=== PATIENT | male | born 1955 | race Caucasian/White ===

== ENCOUNTER 2023-08-28 11:54 | Inpatient (IN) | payer OTHER ==
[2023-08-28 15:14] LABS: HEMATOCRIT 41.6 % (35.4-49); HEMOGLOBIN 14.4 G/dL (11.7-16.9); MCH 30.8 pg (25.7-33.7); MCHC 34.7 g/dl (32.0-35.9); MEAN CELL VOLUME 88.9 fl (80-96); MEAN PLT VOLUME 8.8 fl (7.5-11.1); PLATELET COUNT 124.3 10^3/uL (134-434); RBC 4.68 10^6/uL (4.00-5.60); RDW 13.9 % (11.9-15.9); WHITE BLOOD COUNT 5.2 10^3/uL (4.0-10.8)
[2023-08-28] MEDS ORDERED: cefTRIAXone SODIUM 1 GM VIAL ONE (15:16)
[2023-08-28] MEDS ORDERED: AZITHROMYCIN 500 MG VIAL IVPB ONE (15:16)
[2023-08-28] MEDS ORDERED: ACETAMINOPHEN INJECTION 100 ML IVPB ONE (15:17)
[2023-08-28] MEDS: ACETAMINOPHEN 1000 MG/100 ML BAG IVPB ONE (15:30)
[2023-08-28 15:37] LABS: BILIRUBIN,TOTAL 0.5 mg/dl (0.2-1); CALCIUM 8.6 mg/dl (8.5-10.1); POTASSIUM 4.1 mmol/L (3.5-5.1); TOT PROT 6.9 g/dl (6.4-8.2)
[2023-08-28] MEDS: AZITHROMYCIN IVPB 500 MG in DEXTROSE 5%-WATER - 250 ML IVPB ONE (15:42)
[2023-08-28] MEDS: SODIUM CHLORIDE 2,014 ML IV ONE (15:42)
[2023-08-28 16:27] LABS: INR 1.09 (0.83-1.09); PROTHROMBIN TIME (PATIENT) 12.6 SEC (9.7-13.0)
[2023-08-28 17:06] LABS: PLATELET ESTIMATE SLT DECREASE
[2023-08-28 19:43] VITALS: BMI 30.5
[2023-08-28] MEDS: ACETAMINOPHEN 325 MG TABLET (FP) PO PRN (20:09)
[2023-08-28] MEDS: ALBUTEROL SO4 HFA INHALER IH PRN (20:10)
[2023-08-28] MEDS: DEXTROMETHORPHAN/PROMETHAZINE 15 MG/6.25 MG/5 ML SYRUP PO PRN (22:00)
[2023-08-29 08:27] LABS: HEMATOCRIT 46.7 % (35.4-49); HEMOGLOBIN 15.3 G/dL (11.7-16.9); MCH 29.2 pg (25.7-33.7); MCHC 32.7 g/dl (32.0-35.9); MEAN CELL VOLUME 89.2 fl (80-96); MEAN PLT VOLUME 9.1 fl (7.5-11.1); PLATELET COUNT 159.1 10^3/uL (134-434); RBC 5.23 10^6/uL (4.00-5.60); RDW 14.3 % (11.9-15.9); WHITE BLOOD COUNT 4.9 10^3/uL (4.0-10.8)
[2023-08-29 09:18] LABS: BILIRUBIN,TOTAL 0.5 mg/dl (0.2-1); CALCIUM 8.8 mg/dl (8.5-10.1); POTASSIUM 3.8 mmol/L (3.5-5.1); TOT PROT 7.1 g/dl (6.4-8.2)
[2023-08-29] MEDS: CEFTRIAXONE 1 GM in DEXTROSE 5%-WATER - 50 ML IVPB SCH (09:29)
[2023-08-29] MEDS: AZITHROMYCIN IVPB 500 MG/250 ML BAG IVPB SCH (09:31)
[2023-08-29] MEDS: ATENOLOL 25 MG TABLET (FP) PO SCH (14:45)
[2023-08-30] MEDS: ALBUTEROL SO4 2.5/IPRATROPIUM 0.5 INH SOL 3 ML VIAL.NEB. NEB PRN (11:27)
[2023-08-31 06:08] VITALS: PULSE 89
[2023-08-31 12:59] VITALS: BP 159/88; RESP 16; TEMP 97.8
== END 2023-08-31 13:41 | disposition home or self-care (01) | DRG 195 ==
LOC: FER 11:54 → FM/S 16:09 → OBSVTOIN 17:39
PROVIDERS: ADMIT Student in an Organized Health Care Education/Training Program
DX: J12.9 Viral pneumonia, unspecified (principal); I48.91 Unspecified atrial fibrillation; Z85.528 Personal history of other malignant neoplasm of kidney; I10 Essential (primary) hypertension; E78.5 Hyperlipidemia, unspecified; Z90.5 Acquired absence of kidney
CPT/HCPCS: 0241U-QW; 36415; 71046-TC-FY; 71250-TC; 80053; 83605; 84484; 85027; 85610; 86317; 87040; 87070; 87205; 87899; 93005; 94640; 99285-25; G0378; J0131